=== PATIENT | male | born 2000 | race Caucasian/White ===

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

== ENCOUNTER 2019-03-19 16:37 | Inpatient (IN) ==
--- OUTSIDE RECORDS SUMMARY | 2019-03-19 16:40 | External Medical Summary | Continuity of Care Document ---
:2000 Author Name Clarence Melendez Address Unavailable Unavailable , Care Team Providers Name Role Phone Randi Ferraro M.D. Unavailable [email or web address] [email or web address], S Unavailable Unavailable Unavailable Unavailable Unavailable Assessments Assessed Problems:Pneumonia Problems Exercise counseling (V65.41) (Z71.82) Dietary counseling (V65.3) (Z71.3) Anxiety (300.00) (F41.9) Gastro-esophageal reflux (530.81) (K21.9) Pneumonia (486) (J18.9) Never used moist powdered tobacco (V49.89) (Z78.9) Never a smoker Allergies and Adverse Reactions No Known Drug Allergies (Allergy) Medications Azithromycin 250 MG Oral Tablet; TAKE DIRECTED PER PACKAGE INSTRUCTIONS. Nora Ferraro Start: 31-Aug-2017 Quantity: 1 6 Tablet Pack Refills: 0 Procedures Procedures not documented Immunizations IPV On: 1999 Hib (Haemophilus influenzae type b conjugate) and Hepa titis B vaccine On: 1999 DTaP On: 1999 IPV On: 1999 Hib (Haemophilus influenzae type b conjugate) and Hepa titis B vaccine On: 1999 DTaP On: 1999 DTaP On: 1999 IPV On: 01-Apr-2000 Hib (Haemophilus influenzae type b conjugate) and Hepa titis B vaccine On: 01-Apr-2000 Varicella On: 01-Apr-2000 MMR On: 01-Apr-2000 DTaP On: 06-Jul-2000 IPV On: 22-Apr-2001 DTaP On: 22-Apr-2004 MMR On: 20-May-2004 Varicella On: 23-Dec-2009 10:49 Lot #: [id number], [employer] Menactra Intramuscular Injectable On: 24-Apr-2011 12:27 Lot #: [id number], [employer] Tdap (Boostrix) On: 24-Apr-2011 12:27 Lot #: [id number], [employer] Menactra Intramuscular Injectable On: 14-Jun-2015 9:36 Lot #: [id number], [employer] Vaqta 25 UNIT/0.5ML Intramuscular Suspension On: 14-Jun-2015 9:37 Lot #: [id number], [employer] Vaqta 25 UNIT/0.5ML Intramuscular Suspension On: Apr-2017 Lot #: [id number], [employer] Family History Brother Family history of Asthma (V17.5) Status: Active Family history of Asthma (V17.5) Status: Active Sister Family history of Asthma (V17.5) Status: Active Family history of Portal vein thrombosis (452) (I81) Status: Active Father Family history of Ulcer (707.9) Status: Active Social History - Smoking Status Never smoker Interventions Medication ChangesAzithromycin 250 MG Oral Tablet - Start Plan of Treatment Planned Observations Planned Goals not documented Results No Known Results Results not documented Encounters Appointment; Javi Orta M.D. 04-May-2017 12:00 Encounter Diagnosis: Problem not documented Appointment; Ashley Ferraro M.D. 31-Aug-2017 10:15 Encounter Diagnosis: Problem not documented
[2019-03-19] MEDS ORDERED: ONDANSETRON INJ 2 MG/ML 2 ML VIAL IV STA ×2 (16:46→17:37)
[2019-03-19] MEDS ORDERED: KETOROLAC TROMETHAMINE 15 MG/ML VIAL IV ONE (16:48)
[2019-03-19] MEDS ORDERED: SODIUM CHLORIDE 0.9% 500 ML IV SCH (17:00)
[2019-03-19 17:07] LABS: Basophils # (auto) 0.01 K/uL (0-0.2); Basophils % (auto) 0.1 %; Eosinophils # (auto) 0.04 K/uL (0-0.5); Eosinophils % (auto) 0.2 %; Hematocrit (blood only) 47.1 % (42-52); Hemoglobin 16.8 g/dL (14.0-18.0); Immature Granulocytes # (auto) 0.03 K/uL (0.00-0.02); Immature Granulocytes % (auto) 0.2 %; Lymphocytes # (auto) 2.57 K/uL (1.2-3.4); Lymphocytes % (auto) 13.8 %; Mean Corpuscular Hgb Conc 35.7 g/dL (32-36); Monocytes # (auto) 1.12 K/uL (0.11-0.59); Neutrophils # (auto) 14.83 K/uL (1.4-6.5); Neutrophils % (auto) 79.7 %; Platelet Count 263 K/uL (130-400); RDW Coefficient of Variation 13.4 % (11.5-14.5); RDW Standard Deviation 41.4 fL (36.4-46.3); Red Blood Count 5.54 M/uL (4.7-6.1)
[2019-03-19] MEDS: HYDROmorphone INJ 0.5 MG/0.5 ML SYR IV PRN (17:12)
[2019-03-19 17:26] LABS: Albumin Level 4.3 gm/dl (3.4-5.0); BUN Creatinine Ratio 7.2 (10-20); Calcium 9.2 mg/dl (8.5-10.1); Creatinine Clr Calc Pharmacy 89.3 ml/min; Est GFR (African American) 100.3; Est GFR (Non-African American) 86.5; Potassium 4.2 mmol/L (3.5-5.1)
[2019-03-19 17:29] LABS: Albumin Globulin Ratio 1.1 (0.9-2); Bilirubin,Total 1.3 mg/dl (0.2-1); Total Protein 8.3 gm/dl (6.4-8.2)
[2019-03-19 19:14] LABS: Appearance Urine Clear (Clear); Bacteria Urine Automated Negative (Negative); Bilirubin Urine Negative (Negative); Cast Urine Automated 0 /lpf (0-5); Glucose Urine UA Negative (Negative); Ketones Urine Negative (Negative); Leukocyte Esterase Urine Negative (Negative); Nitrite Urine Negative (Negative); Specific Gravity Urine 1.019 (1.000-1.030); Urobilinogen Urine Negative (Negative); pH Urine 8.5 (4.5-7.5)
[2019-03-19] MEDS ORDERED: IOVERSOL 100ml IV PRN (19:17)
[2019-03-19 19:19] LABS: Color Urine Dark Yellow
[2019-03-19 19:21] LABS: Protein Urine Negative (Negative)
--- NOTE | 2019-03-19 19:31 | CT Scan Report ---
CT abd pelvis oral and IV con CT DOSE: 281.19 mGy.cm HISTORY: Pain. Nausea. lower abd pain TECHNIQUE: Multiaxial CT images of the abdomen and pelvis were performed following the use of intrave nous and oral contrast. A dose lowering technique was utilized adhering to the principles of ALARA. COMPARISON STUDY: None. FINDINGS: The lung bases are clear. Liver spleen and pancreas are unremarkable. The kidneys enhance u niformly. The upper abdominal bowel pattern is nonobstructive. Trace free fluid within the right paracolic gutter region. Tubular structure medial and inferior to t he cecum extending to the low soft tissue pelvic region. This appears to contain a combination of sev eral appendicoliths as well as fluid with a maximum diameter of 11 mm. This is suggestive of acute ap pendicitis. Trace amount of periappendiceal infiltrative change. No evidence for abscess or collectio n. Lower pelvic bowel pattern is considered nonobstructive. There may be a minimal reactive ileus as wel l as several small reactive mesenteric nodes. IMPRESSION: 1. Acute appendicitis. 2. The appendix is distended to a maximum diameter of 11 mm and contains a combination of fluid as we ll as appendicoliths. 3. Mild periappendiceal infiltrative change. 4. No evidence for abscess collection or obstruction. 5. Mild reactive lower pelvic small bowel ileus. 6. Trace free fluid within the right paracolic gutter. The above report was generated using voice recognition software. It may contain grammatical, syntax or spelling errors. Electronically signed by: Walker Connolly M.D. 03/19/2019 7:30 PM
[2019-03-19] MEDS ORDERED: cefOXitin 2,000 MG/60 ML BAG IV STA (19:35)
--- NOTE | 2019-03-19 20:16 | History & Physical Report ---
Date of Service March 19, 2019 Assessment & Plan (1) Appendicitis: lap appy possible open r and c explained to pt including bleeding on going infection injury tp other organs Present on Admission?: Yes History of Present Illness Chief Complaint: abd pain emesis since yesterday Primary Care Provider: NO PCP 24 hr plus history of belly pain that started around belly button then vomited x3 than pain moved to right lower belly and became worse today no temperature at home Allergies Allergy/AdvReac Type Severity Reaction Status Date / Time No Known Allergies Allergy Unverified 03/19/19 17:24 Home Medications Home Medications Medication Instructions Recorded Confirmed Type Amped Af 1 dose PO UD PRN 03/19/19 03/19/19 History Creatine Powder 1 dose PO UD 03/19/19 03/19/19 History [employer] Massacre 1 dose PO UD 03/19/19 03/19/19 History Past Med/Surg History Medical History Appendicitis (Acute) Social History Preferred Language: Nepali Feels Safe at Home: Yes Smoking Status: Former smoker Review of Systems Review of Systems: All systems reviewed & are unremarkable except as noted in HPI & below 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 disease Physical Exam Physical Exam: alert coherent looks sick Eyes: conjunctivae injected ENMT: external ear and nose normal, oropharynx normal Neck: trachea midline, no thyromegaly trachea midline Thyroid: normal thyroid Respiratory: normal respiratory effort, lungs clear to auscultation Cardiovascular: RRR, no murmur, no edema Rate/Rhythm: + tachycardic Gastrointestinal (Abdomen): thin muscular abdomen with rebound rlq and generalized guarding Musculoskeletal: no cyanosis or clubbing, extremities motor strength 5/5 Skin: no rashes, warm and dry normal turgor Results & Data Vital Signs (Past 12 Hours) Vital Signs Temp Pulse Pulse Resp BP BP Pulse Ox 03/19/19 19:52 38.0 C H 118 H 18 104/50 L 95 03/19/19 18:54 38.0 C H 130 H 18 115/57 L 97 03/19/19 17:41 98 03/19/19 17:18 102 H 20 136/72 100 03/19/19 17:10 102 H 20 118/75 100 03/19/19 16:41 38.1 C H 114 H 20 123/77 100 noted
[2019-03-19] MEDS ORDERED: LIDOCAINE/EPINEPHRINE 1% 20 ML VIAL ONE (20:20)
[2019-03-19] MEDS ORDERED: HYDROmorphone INJ 2 MG/ML SYR/VIAL IV PRN (20:39)
[2019-03-19] MEDS ORDERED: ONDANSETRON INJ 2 MG/ML 2 ML VIAL IV PRN ×2 (20:39→23:06)
[2019-03-19] MEDS ORDERED: ePHEDrine sulfate 50 MG/ML AMP IV PRN (20:39)
[2019-03-19] MEDS ORDERED: fentaNYL citrate 100 MCG/2 ML VIAL IV PRN (20:39)
[2019-03-19] MEDS ORDERED: PROMETHAZINE HCL 6.25 MG in SODIUM CHLORIDE 0.9% 50 ML IV PRN (20:39)
[2019-03-19] MEDS ORDERED: ATROPINE SULFATE 0.1 MG/ML 10ML SYR IV PRN (20:39)
--- NOTE | 2019-03-19 20:44 | Anesthesiology Consultation ---
Date of Service March 19, 2019 Assessment & Plan Chart Review Chart Review: Acceptable Risk for Surgery and Patient NOT seen in Pre Admission Testing Consults Requested none ASA [id number] Proposed Anesthesia Anesthesia Type: General Risk / Benefits Reviewed With: PT / POA / Parent / Guardian, Accepts Plan and Informed Consent Obtained History Surgery Operation Date: 03/19/19 20:10 Proposed Procedures p Laparoscopic Appendectomy - Cristiano Downs MD Height/Weight Height: 5 ft 8 in Weight: 64.3 kg Allergies Allergy/AdvReac Type Severity Reaction Status Date / Time No Known Allergies Allergy Unverified 03/19/19 17:24 Medications Home Medications Medication Instructions Recorded Confirmed Last Taken Amped Af 1 dose PO UD PRN 03/19/19 03/19/19 Unknown Creatine Powder 1 dose PO UD 03/19/19 03/19/19 Unknown [employer] Massacre 1 dose PO UD 03/19/19 03/19/19 Unknown Active Medications Generic Name Dose Route Start Last Admin Trade Name Freq PRN Reason Stop Dose Admin Hydromorphone HCl 0.5 mg 03/19/19 16:46 03/19/19 17:12 Dilaudid IV 04/02/19 16:45 0.5 mg Q15M PRN Administration Pain Ioversol 93 ml 03/19/19 19:17 03/19/19 19:17 Optiray 320 100ml IV 03/23/19 19:16 93 ml ONCE PRN Administration Interaction Checking NPO Date Last Intake of Fluids: 03/19/19 Time Last Intake of Fluids: 18:30 Last Intake of Fluids Comment: CT oral contrast Date Last Intake of Solids: 03/19/19 Time Last Intake of Solids: 15:00 Last Intake of Solids Comment: banana Past Medical History Medical History Appendicitis (Acute) Exercise / Class Metabolic Activity 1 > 8 Run/Swim/Ski/Tennis Past Anesthesia History No Hx of Anesthesia Complications and No Family Hx of Anesthesia Complications History of PONV No Hx of PONV and No Hx of Motion Sickness Social History Smoking Status: Former smoker Physical Exam Vital Signs Last Vital Signs Temp 38.0 C H 03/19/19 19:52 Pulse 118 H 03/19/19 19:52 Resp 18 03/19/19 19:52 BP 104/50 L 03/19/19 19:52 Pulse Ox 95 03/19/19 19:52 ENMT Mouth: no dentition abnormality Thyromental Distance: > or= 3.5 Finger Breadths Mallampati Class: II Neck normal visual inspection Respiratory normal respiratory effort Auscultation: lungs clear to auscultation bilaterally Cardiovascular Rate/Rhythm: regular rate and regular rhythm Psychiatric Orientation: alert Testing Laboratory Results 03/19/19 16:58 03/19/19 16:58 Urine Color Dark Yellow 03/19/19 18:56 Urine Appearance Clear (Clear) 03/19/19 18:56 Urine pH 8.5 (4.5-7.5) H 03/19/19 18:56 Ur Specific [place] 1.019 (1.000-1.030) 03/19/19 18:56 Urine Protein Negative (Negative) 03/19/19 18:56 Urine Glucose (UA) Negative (Negative) 03/19/19 18:56 Urine Ketones Negative (Negative) 03/19/19 18:56 Urine Nitrite Negative (Negative) 03/19/19 18:56 Ur Leukocyte Esterase Negative (Negative) 03/19/19 18:56 Urine WBC (Auto) 1-5 /hpf (0-5) 03/19/19 18:56 Urine RBC (Auto) 0-4 /hpf (0-4) 03/19/19 18:56 U Hyaline Cast (Auto) 0 /lpf (0-5) 03/19/19 18:56 U Epithel Cells (Auto) 5-10 /lpf (0-5) H 03/19/19 18:56 Urine Bacteria (Auto) Negative (Negative) 03/19/19 18:56
[2019-03-19] MEDS ORDERED: fentaNYL citrate 100 MCG/2 ML VIAL ONE (20:50)
--- NOTE | 2019-03-19 21:07 | Emergency Department Note ---
Entered by Vannessa Butts acting as a scribe for ED Provider Note CHIEF COMPLAINT: abdominal pain HISTORY OF PRESENT ILLNESS: The patient is a 19 year old male who presents to the Emergency Room with complaints of abdominal pain that started yesterday. The patient states that yesterday he had abdominal pain and vomiting. The patien t reports that today he has not been vomiting as frequently as prior, however the abdominal pain migrated lower down his abdomen. The patient states at this time he is only feeling nauseous has a pain severity of 6. The patient expresses that he feels better resting however he has an occasional "flare up" of pain. The patient has not taken any medication prior to arrival. The patient states that he had chicken noodle soup and a banana around 0300. The patient reports any significant medical history or surgery. The patient expresses that he has never felt this pain before. Pt denies LOC, headache, fevers, chills, diaphoresis, visual changes, neck pain, chest pain, breathing difficulties, back pain, melena, hematochezia, urinary symptoms, numbness, weakness, lymphadenopathy, rash, or other complaints. REVIEW OF SYSTEMS: See HPI for pertinent positives and negatives. A total of ten systems were reviewed and were otherwise negative. PMHx/PSHx: Right ankle pain SOCIAL HISTORY: Patient lives at home. PHYSICAL EXAM: GENERAL: Awake, alert, uncomfortable, in no distress HENT: Normocephalic, atraumatic. Oropharynx unremarkable. EYES: PERRL. Normal conjunctiva. Sclera non-icteric. NECK: Inspection normal. Non-tender. Supple. No nuchal rigidity. FROM. No masses. RESPIRATORY: Clear to auscultation. No wheezes. No rales. Normal respiratory effort. CARDIAC: Tachycardic rate. Normal rhythm. No murmurs. No rubs. Extremities warm and well perfused. Pulses equal. No JVD. GI: Soft, non-distended. Midline and right lower tenderness.Tenderness to palpation. Rebound or guarding. No masses. Positive Rovsing's sign. Positive hip shake. Positive obturator sign. RECTAL: Deferred. MUSCULOSKELETAL: Atraumatic. Chest examination reveals no tenderness. The back is symmetrical on inspection without obvious abnormality. There is no CVA tenderness to palpation. No joint edema. LOWER EXTREMITIES: Calves are equal size bilaterally and non-tender. No edema. No discoloration. NEURO: Normal sensorium. No sensory or motor deficits noted. SKIN: No rash or jaundice noted. EMERGENCY DEPARTMENT COURSE: 164: Past medical records reviewed. The patient was evaluated in room A12, and a complete history and physical examination were performed. 1742: I reassessed the patient who was having more nausea. I gave him additional Zofran. 185: I reassessed the patient who was feeling better and will go to CAT scan soon. 1937: I updated the patient on the findings from his CAT scan. I paged general surgery for a consultation 1945: I reviewed the patient's case with Dr. Downs - [facility]. He has agreed to admit the patient. MEDICAL DECISION MAKING: A12 Prior records/ancillary studies reviewed. Triage Nursing notes reviewed and agree them. Additional history obtained from family. The patient's history was concerning for abdominal pain. Differential diagnosis: Etiologies such as appendicitis, diverticulitis, PUD, biliary pathology, UTI, pancreatitis, obstruction, mesenteric ischemia, aortic pathology, infections, inflammatory bowel disease, renal colic, as well as others were entertained. Physical examination findings: As above. ER treatment provided: IV normal saline hydration with 2 L normal saline IV Zofran 4 mg x 2 IV Dilaudid 0.5 mg x 2 N.p.o. Monitoring revealed sinus tachycardia. On reassessment the patient felt better. IV Mefoxin. Diagnostics interpreted by me: The labs revealed a significant leukocytosis on CBC. Chemistry panel revealed mild dehydration. Imaging studies: CT scan of the under pelvis was reviewed and is consistent with acute appendi citis. Radiology agrees. No perforation. Patient has acute appendicitis. He was informed. He will need surgery. Consultation: A consultation was placed with the general surgeon on-call, Dr. Cristiano Downs. The case was discussed and diagnostics were reviewed. The patient was evaluated in the ER for further treatment. IMPRESSION: Appendicitis PLAN: Being Evaluated by Hospitalist The scribe's documentation has been prepared under my direction and personally reviewed by me in its entirety. I confirm that the note above accurately reflects all work, treatment, procedures, and medical decision making performed by me. Impression & Plan Appendicitis Past Med/Surg History Medical History Appendicitis (Acute) Social History Preferred Language: Malay Feels Safe at Home: Yes Smoking Status: Former smoker Results & Data Vital Signs Vital Signs - 24 hr 03/19/19 16:41 03/19/19 17:10 03/19/19 17:18 Temperature 38.1 C H Temperature Source Oral Sepsis Recent Fever Within 48 Hours Yes Sepsis New/Unexplained Change in Mental Status No Sepsis Action Taken by Nursing No Action Required Pulse Rate 114 H Pulse Rate [Right] 102 H 102 H Pulse Rhythm Regular Pulse Strength Normal Respiratory Rate 20 20 20 Respiratory Effort / Characteristics Non-Labored Spontaneous Non-Labored Non-Labored Respiratory Depth Normal Normal Normal Respiratory Pattern Regular Blood Pressure 123/77 Blood Pressure [Right Arm] 118/75 136/72 Blood Pressure Mean 92 Blood Pressure Mean [Right Arm] 89 93 Blood Pressure Position Sitting Pulse Oximetry 100 100 100 Oxygen Delivery Method Room Air Room Air Room Air 03/19/19 17:41 03/19/19 18:54 03/19/19 19:52 Temperature 38.0 C H 38.0 C H Temperature Source Oral Oral Sepsis Recent Fever Within 48 Hours Sepsis New/Unexplained Change in Mental Status Sepsis Action Taken by Nursing Pulse Rate Pulse Rate [Right] 130 H 118 H Pulse Rhythm Pulse Strength Respiratory Rate 18 18 Respiratory Effort / Characteristics Non-Labored Non-Labored Respiratory Depth Normal Normal Respiratory Pattern Blood Pressure Blood Pressure [Right Arm] 115/57 L 104/50 L Blood Pressure Mean Blood Pressure Mean [Right Arm] 76 68 Blood Pressure Position Pulse Oximetry 98 97 95 Oxygen Delivery Method Room Air Room Air Room Air Home Medications Current Medication List: was personally reviewed by me Laboratory Data Attestation: I reviewed the patient's lab results. Result diagrams: 03/19/19 16:58 03/19/19 16:58 Lab Results 03/19/19 03/19/19 03/19/19 Range/Units 16:58 16:58 18:56 WBC 18.60 H (4.8-10.8) K/uL RBC 5.54 (4.7-6.1) M/uL Hgb 16.8 (14.0-18.0) g/dL Hct 47.1 (42-52) % MCV 85.0 (80-100) fL MCH 30.3 (25-34) pg MCHC 35.7 (32-36) g/dL RDW Std Deviation 41.4 (36.4-46.3) fL RDW Coeff of Des 13.4 (11.5-14.5) % Plt Count 263 (130-400) K/uL MPV 9.0 (7.4-10.4) fL Immature Gran % (Auto) 0.2 % Neut % (Auto) 79.7 % Lymph % (Auto) 13.8 % Alfalfa % (Auto) 6.0 % Eos % (Auto) 0.2 % Baso % (Auto) 0.1 % Immature Gran # (Auto) 0.03 H (0.00-0.02) K/uL Neut # (Auto) 14.83 H (1.4-6.5) K/uL Lymph # (Auto) 2.57 (1.2-3.4) K/uL Alfalfa # (Auto) 1.12 H (0.11-0.59) K/uL Eos # (Auto) 0.04 (0-0.5) K/uL Baso # (Auto) 0.01 (0-0.2) K/uL Sodium 135 L (136-145) mmol/L Potassium 4.2 (3.5-5.1) mmol/L Chloride 101 (98-107) mmol/L Carbon Dioxide 28 (21-32) mmol/L Anion Gap 6.0 (3-11) BUN 9 (7-18) mg/dl Creatinine 1.20 (0.6-1.4) mg/dl Est Cr Clr Drug Dosing 89.3 ml/min Est GFR ( Amer) 100.3 Est GFR (Non-Af Amer) 86.5 BUN/Creatinine Ratio 7.2 L (10-20) Glucose 128 H (70-99) mg/dl Calcium 9.2 (8.5-10.1) mg/dl Total Bilirubin 1.3 H (0.2-1) mg/dl AST 16 (15-37) U/L ALT 44 (12-78) U/L Alkaline Phosphatase 104 (45-117) U/L Total Protein 8.3 H (6.4-8.2) gm/dl Albumin 4.3 (3.4-5.0) gm/dl Globulin 4.0 (2.5-4.0) gm/dl Albumin/Globulin Ratio 1.1 (0.9-2) Lipase 111 (73-393) U/L Urine Color Dark Yellow Urine Appearance Clear (Clear) Urine pH 8.5 H (4.5-7.5) Ur Specific [place] 1.019 (1.000-1.030) Urine Protein Negative (Negative) Urine Glucose (UA) Negative (Negative) Urine Ketones Negative (Negative) Urine Blood Negative (Negative) Urine Nitrite Negative (Negative) Urine Bilirubin Negative (Negative) Urine Urobilinogen Negative (Negative) Ur Leukocyte Esterase Negative (Negative) Urine WBC (Auto) 1-5 (0-5) /hpf Urine RBC (Auto) 0-4 (0-4) /hpf U Hyaline Cast (Auto) 0 (0-5) /lpf U Epithel Cells (Auto) 5-10 H (0-5) /lpf Urine Bacteria (Auto) Negative (Negative) Administered Medications Hydromorphone HCl (Dilaudid) 0.5 mg IV Q15M PRN PRN Reason: Pain Stop: 04/02/19 16:45 Last Admin: 03/19/19 17:12 Dose: 0.5 mg Documented by: [id number] Ioversol (Optiray 320 100ml) 93 ml IV ONCE PRN PRN Reason: Interaction Checking Stop: 03/23/19 19:16 Last Admin: 03/19/19 19:17 Dose: 93 ml Documented by: [id number] Discontinued Medications Sodium Chloride (Nss) 500 mls @ 999 mls/hr IV .Q31M CHAPARRITA Stop: 03/19/19 17:30 Last Infusion: 03/19/19 17:44 Dose: 0 mls/hr Documented by: [id number] Admin: 03/19/19 17:12 Dose: 999 mls/hr Documented by: [id number] Cefoxitin Sodium (Mefoxin) 2,000 mg in 60 mls @ 100 mls/hr IV NOW STA Stop: 03/19/19 20:10 Last Admin: 03/19/19 20:00 Dose: 100 mls/hr Documented by: [id number] Ketorolac Tromethamine (Toradol) 10 mg IV NOW ONE Stop: 03/19/19 16:49 Last Admin: 03/19/19 17:12 Dose: 10 mg Documented by: [id number] Ondansetron HCl (Zofran) 4 mg IV NOW STA Stop: 03/19/19 16:47 Last Admin: 03/19/19 17:12 Dose: 4 mg Documented by: [id number] Ondansetron HCl (Zofran) 4 mg IV NOW STA Stop: 03/19/19 17:38 Last Admin: 03/19/19 17:40 Dose: 4 mg Documented by: [id number] Imaging Data Radiologist's Impression: Radiology results as stated below per my review and the radiologist's interpretation: CT abd pelvis oral and IV con CT DOSE: 281.19 mGy.cm HISTORY: Pain. Nausea. lower abd pain TECHNIQUE: Multiaxial CT images of the abdomen and pelvis were performed following the use of intravenous and oral contrast. A dose lowering technique was utilized adhering to the principles of ALARA. COMPARISON STUDY: None. FINDINGS: The lung bases are clear. Liver spleen and pancreas are unremarkable. The kidneys enhance uniformly. The upper abdominal bowel pattern is nonobstructive. Trace free fluid within the right paracolic gutter region. Tubular structure medial and inferior to the cecum extending to the low soft tissue pelvic region. This appears to contain a combination of several appendicoliths as well as fluid with a maximum diameter of 11 mm. This is suggestive of acute appendicitis. Trace amount of periappendiceal infiltrative change. No evidence for abscess or collection. Lower pelvic bowel pattern is considered nonobstructive. There may be a minimal reactive ileus as well as several small reactive mesenteric nodes. IMPRESSION: 1. Acute appendicitis. 2. The appendix is distended to a maximum diameter of 11 mm and contains a combination of fluid as well as appendicoliths. 3. Mild periappendiceal infiltrative change. 4. No evidence for abscess collection or obstruction. 5. Mild reactive lower pelvic small bowel ileus. 6. Trace free fluid within the right paracolic gutter. The above report was generated using voice recognition software. It may contain grammatical, syntax or spelling errors. Electronically signed by: Walker Connolly M.D. 03/19/2019 7:30 PM Discharge Plan Visit Data Chief Complaint: Abdominal Pain Stated Complaint: ABDOMINAL PAIN, VOMITING ED Provider: Bry Fleming Discharge Problem: Appendicitis Patient Disposition: Being Evaluated by Surgeon Discharge Instructions Interventions: ED Discharge Assessment Last Done: 03/19/19 20:18 Discharge Problem: Appendicitis Qualifiers: Appendicitis type: acute appendicitis Acute appendicitis type: with localized peritonitis Appendicitis gangrene presence: without gangrene Appendicitis perforation presence: without perforation Appendicitis abscess presence: unspecified whether abscess present Qualified Code(s): K35.30 - Acute appendicitis with localized peritonitis, without perforation or gangrene The scribe's documentation has been prepared under my direction and personally reviewed by me in its entirety. I confirm that the note above accurately reflects all work, treatment, procedures, and medical decision making performed by me.
[2019-03-19] MEDS ORDERED: LIDOCAINE HCL 2% 2 ML VIAL/AMP(20MG/ML) INFIL ONE (21:15)
[2019-03-19] MEDS ORDERED: PROPOFOL IV EMULSION 10 MG/ML 20 ML VIAL IV ONE (21:15)
[2019-03-19] MEDS ORDERED: DEXAMETHASONE SOD INJ 4 MG/ML VIAL ONE (21:15)
[2019-03-19] MEDS ORDERED: CISATRACURIUM BESYLATE IV SOLN 2 MG/ML 10 ML VIAL IV ONE (21:15)
[2019-03-19] MEDS ORDERED: SUCCINYLCHOLINE CHLORIDE 20 MG/ML 10 ML VIAL ONE (21:15)
[2019-03-19] MEDS ORDERED: NEOSTIGMINE METHYLSULFATE 5 MG/5 ML SYR ONE (21:15)
[2019-03-19] MEDS ORDERED: KETOROLAC 30 MG/ML VIAL ONE (21:15)
[2019-03-19] MEDS ORDERED: ONDANSETRON INJ 2 MG/ML 2 ML VIAL ONE (21:15)
[2019-03-19] MEDS ORDERED: GLYCOPYRROLATE 0.2 MG/ML VIAL ONE (21:15)
[2019-03-19] MEDS ORDERED: MoRPHine SULFATE 2 MG/ML CARP ONE (21:40)
--- NOTE | 2019-03-19 21:49 | Post Operative Brief Note ---
Immediate Post Op Note v1 Date of Surgery March 19, 2019 Pre & Post Diagnosis Operation Date: 03/19/19 20:10 Pre-Op Diagnosis: Appendicitis Post-Op Diagnosis: Gangrenous Appendicitis Procedure Operation Date: 03/19/19 20:10 Actual Procedures p Laparoscopic Appendectomy(Not Applicable) - Cristiano Downs MD Surgeon Cristiano Downs MD Chief Drafter 0 Estimated Blood Loss 5 Findings Consistent with Post-Op Diagnosis Drains Justin Drain (19 Fr)
[2019-03-19] MEDS ORDERED: PIPERACILL/TAZOBAC CONSULT ACTIVE PRN (22:02)
[2019-03-19] MEDS ORDERED: HYDROmorphone INJ 1 MG/ML SYRINGE IV PRN (22:02)
--- NOTE | 2019-03-19 22:16 | Anesthesiology Progress Note ---
Date of Service March 19, 2019 Anesthesia Post Procedure Vital Signs Vital Signs: Temp Pulse Pulse Resp BP BP Pulse Ox 03/19/19 19:52 38.0 C H 118 H 18 104/50 L 95 03/19/19 18:54 38.0 C H 130 H 18 115/57 L 97 03/19/19 17:41 98 03/19/19 17:18 102 H 20 136/72 100 03/19/19 17:10 102 H 20 118/75 100 03/19/19 16:41 38.1 C H 114 H 20 123/77 100 Pain Intensity Other: Pain Intensity: 4 Transfer of Care Handoff Completed per policy Notes Mental Status: alert / awake / arousable Patient Amnestic to Procedure: Yes Nausea / Vomiting: adequately controlled Pain: adequately controlled Airway Patency, RR, SpO2: stable & adequate BP & HR: stable & adequate Hydration State: stable & adequate Anesthetic Complications: no major complications apparent
--- NOTE | 2019-03-19 22:23 | Operative Report ---
Post Operative Report Pre & Post Diagnosis Operation Date: 03/19/19 20:10 Pre-Op Diagnosis: Appendicitis Post-Op Diagnosis: Gangrenous Appendicitis Procedure Operation Date: 03/19/19 20:10 Actual Procedures p Laparoscopic Appendectomy(Not Applicable) - Cristiano Downs MD The patient was brought into the operating theater supine position general endotracheal anesthesia abdomen was prepped Betadine solution properly draped systemic antibiotics on board timeout was had patient identified small incision was made supraumbilically sufficient for a Veress needle followed by CO2 followed by 5 mm trocar we were using the 30 degree scope which was poor quality therefore we changed with 0 degree point of entry inspected no injury identified patient is best as we could tell with the video of the small bowel appeared to be hyperemic the cecum was identified at the base of the appendix could be seen going down towards the pelvis under direct visualization I placed a 5 mm right upper quadrant port preemptive analgesic at this point we then could see by moving the terminal ileum that down towards the pelvic area there is cloudy feculent appearing fluid we put a trap and aspirated this for culture irrigated that area copiously patient in reverse Trendelenburg. At this point once this was accomplished we ~~patient to the left after we had placed and converted the 5 mm umbilical port to a 11 mm placed a 5 mm left lower quadrant with a camera could identify the base of the appendix markedly fibrinous this as we can see the tip was down to towards the pelvic brim creating a window between the mesoappendix and the cecum and then were able to place one firing of the blue load JOSEPH elevating the appendix at this point we then mobilized the terminal ileum more I could see that the tip of the appendix was gangrenous the mesentery was quite inflamed. I elected then to just use clips as we went along the mesentery down to the tip of the appendix. There is no gross obviously perforation but I suspect it was microperforation given the fluid that we had in the belly. The appendix was then placed in an Endopouch and taken out through the epigastric port through the umbilical port. Irrigation was used to serially significantly irrigate the abdomen and patient in reverse Trendelenburg I elected to drain the pelvic area with a Justin drain the prior to doing that reinspected the area of the staple on the cecum which was hemostatic as was the individual clips that I placed in the nasal index terminal ileum was free from any injury. Justin drain was brought in through the left lower quadrant port and taken out the right upper quadrant port and positioned in the right gutter and on the pelvis attached to skin edge with 2-0 silk individual trochars were then removed fascial stitch of [id number] 0 Vicryl x2 for the umbilical fascia Monocryl subcu Steri-Strips applied procedure was tolerated well by the patient estimated blood loss approximately 5 cc thank you Surgeon Cristiano Downs MD Developer Prover Upholstering 0 Estimated Blood Loss 5 Findings Consistent with Post-Op Diagnosis Specimens appendix peritoneal fluid Description of Procedure merda I attest to the content of the Intraoperative Record and any orders documented therein. Any exceptions are noted below.
[2019-03-19] MEDS ORDERED: ACETAMINOPHEN 325 MG TAB PO PRN (23:06)
[2019-03-20] MEDS: PIPERACILLIN/TAZOBACTAM 3.375 GM in DEXTROSE 5% 100 ML IV SCH ×3 (00:30→15:56)
[2019-03-20] MEDS: LACTATED RINGER'S 1,000 ML IV SCH ×3 (02:49→18:19)
[2019-03-20] MEDS: HYDROmorphone INJ 0.5 MG/0.5 ML SYR IV PRN ×3 (06:42→15:56)
--- NOTE | 2019-03-20 10:56 | Anesthesiology Progress Note ---
Date of Service March 20, 2019 Anesthesia Post Procedure Vital Signs Vital Signs: Temp Pulse Pulse Pulse Pulse Resp BP 03/20/19 07:45 37.1 C 66 16 03/20/19 06:50 36.6 C 54 L 18 03/20/19 02:50 36.8 C 61 18 03/20/19 01:33 37.1 C 70 16 03/19/19 23:50 37.5 C 86 19 03/19/19 23:20 37.3 C 87 18 03/19/19 23:12 37.2 C 71 14 03/19/19 22:40 37.0 C 90 20 99/49 L 03/19/19 22:36 92 H 16 03/19/19 22:35 91 H 18 96/51 L 03/19/19 22:31 90 15 03/19/19 22:30 90 13 88/41 L 03/19/19 22:26 97 H 15 03/19/19 22:25 90 15 97/43 L 03/19/19 22:21 97 H 20 03/19/19 22:20 100 H 19 89/51 L 03/19/19 22:16 99 H 20 03/19/19 22:15 101 H 19 98/48 L 03/19/19 22:11 99 H 17 03/19/19 22:10 99 H 22 99/51 L 03/19/19 22:05 101 H 21 93/47 L 03/19/19 22:02 102 H 19 93/42 L 03/19/19 22:00 37.1 C 115 H 102 H 19 03/19/19 19:52 38.0 C H 118 H 18 03/19/19 18:54 38.0 C H 130 H 18 03/19/19 17:41 03/19/19 17:18 102 H 20 03/19/19 17:10 102 H 20 03/19/19 16:41 38.1 C H 114 H 20 123/77 BP BP Pulse Ox 03/20/19 07:45 96/60 L 98 03/20/19 06:50 102/61 98 03/20/19 02:50 99/62 L 97 03/20/19 01:33 95/59 L 97 03/19/19 23:50 97/59 L 97 03/19/19 23:20 107/51 L 98 03/19/19 23:12 93/55 L 98 03/19/19 22:40 97 03/19/19 22:36 95 03/19/19 22:35 95 03/19/19 22:31 91 03/19/19 22:30 91 03/19/19 22:26 93 03/19/19 22:25 92 03/19/19 22:21 92 03/19/19 22:20 93 03/19/19 22:16 93 03/19/19 22:15 92 03/19/19 22:11 94 03/19/19 22:10 95 03/19/19 22:05 92 03/19/19 22:02 92 03/19/19 22:00 103/42 L 94 03/19/19 19:52 104/50 L 95 03/19/19 18:54 115/57 L 97 03/19/19 17:41 98 03/19/19 17:18 136/72 100 03/19/19 17:10 118/75 100 03/19/19 16:41 100 Pain Intensity Other: Pain Intensity: 4 Abdomen: Pain Intensity: 3 Notes Mental Status: alert / awake / arousable Patient Amnestic to Procedure: Yes Nausea / Vomiting: adequately controlled Pain: improving with treatment Airway Patency, RR, SpO2: stable & adequate BP & HR: stable & adequate Hydration State: stable & adequate Anesthetic Complications: no major complications apparent
[2019-03-20] MEDS: OXYCODONE/ACETAMINOPHEN 5mg/325mg TAB PO PRN ×2 (12:06→18:19)
[2019-03-20] MEDS ORDERED: Nursing to Pharmacy Communication ONE (14:31)
[2019-03-21] MEDS: PIPERACILLIN/TAZOBACTAM 3.375 GM in DEXTROSE 5% 100 ML IV SCH ×3 (00:10→16:16)
[2019-03-21] MEDS: OXYCODONE/ACETAMINOPHEN 5mg/325mg TAB PO PRN ×5 (00:27→19:46)
[2019-03-21] MEDS: LACTATED RINGER'S 1,000 ML IV SCH ×2 (02:05→10:00)
--- NOTE | 2019-03-21 06:37 | Surgery Progress Note ---
Date of Service March 21, 2019 Assessment & Plan (1) Appendicitis: 03/21/19 POD#1 slow with diet increase activity chnage to oral analgesics lap appy possible open r and c explained to pt including bleeding on going infection injury tp other organs Subjective feels better no nausea Physical Exam Physical Exam: alert coherent with minimal discomfort ENMT: external ear and nose normal, oropharynx normal Neck: trachea midline, no thyromegaly trachea midline Thyroid: normal thyroid Respiratory: normal respiratory effort, lungs clear to auscultation Cardiovascular: RRR, no murmur, no edema Rate/Rhythm: + tachycardic Musculoskeletal: no cyanosis or clubbing, extremities motor strength 5/5 Skin: no rashes, warm and dry normal turgor Results & Data Vital Signs (Past 12 Hours) Vital Signs Temp Pulse Resp BP Pulse Ox 03/20/19 23:37 36.8 C 56 L 16 93/52 L 96 (1) Appendicitis Acute appendicitis type: with localized peritonitis Appendicitis abscess presence: unspecified whether abscess present Appendicitis gangrene presence: without gangrene Appendicitis perforation presence: without perforation Appendicitis type: acute appendicitis Qualified Code(s): K35.30 - Acute appendicitis with localized peritonitis, without perforation or gangrene
[2019-03-21 07:16] LABS: Basophils # (auto) 0.02 K/uL (0-0.2); Basophils % (auto) 0.2 %; Eosinophils # (auto) 0.11 K/uL (0-0.5); Eosinophils % (auto) 1.3 %; Hematocrit (blood only) 39.3 % (42-52); Hemoglobin 12.8 g/dL (14.0-18.0); Immature Granulocytes # (auto) 0.02 K/uL (0.00-0.02); Immature Granulocytes % (auto) 0.2 %; Lymphocytes # (auto) 1.78 K/uL (1.2-3.4); Lymphocytes % (auto) 21.7 %; Mean Corpuscular Hgb Conc 32.6 g/dL (32-36); Mean Corpuscular Volume 88.9 fL (80-100); Mean Platelet Volume 9.6 fL (7.4-10.4); Monocytes # (auto) 0.82 K/uL (0.11-0.59); Neutrophils # (auto) 5.47 K/uL (1.4-6.5); Neutrophils % (auto) 66.6 %; Platelet Count 177 K/uL (130-400); RDW Coefficient of Variation 13.8 % (11.5-14.5); RDW Standard Deviation 45.3 fL (36.4-46.3); Red Blood Count 4.42 M/uL (4.7-6.1); White Blood Count 8.22 K/uL (4.8-10.8)
[2019-03-21 07:29] LABS: BUN Creatinine Ratio 10.5 (10-20); Calcium 8.3 mg/dl (8.5-10.1); Creatinine Clr Calc Pharmacy 99.2 ml/min; Est GFR (African American) 113.9; Est GFR (Non-African American) 98.3; Potassium 4.1 mmol/L (3.5-5.1)
[2019-03-21] MEDS ORDERED: OXYCODONE/ACETAMINOPHEN 5mg/325mg TAB PO PRN (09:41)
[2019-03-22] MEDS: PIPERACILLIN/TAZOBACTAM 3.375 GM in DEXTROSE 5% 100 ML IV SCH ×2 (00:07→07:42)
--- NOTE | 2019-03-22 07:50 | Surgery Progress Note ---
Date of Service March 22, 2019 Assessment & Plan (1) Appendicitis: 03/22/19 POD#2 will d/c iv fluid increase diet check later today for d/C keep drain in and remove in office on wednesday keep on augmentin for another 5 days 03/21/19 POD#1 slow with diet increase activity change to oral analgesics lap appy possible open r and c explained to pt including bleeding on going infection injury tp other organs Subjective feels ok pain controlled with oral meds no nausea pos flatus Physical Exam Physical Exam: alert coherent in no distress SO sleeping in chair next to him abd soft betty drainage serous Results & Data Vital Signs (Past 12 Hours) Vital Signs Temp Pulse Resp BP Pulse Ox 03/21/19 23:05 37.1 C 94 H 16 101/61 97 (1) Appendicitis Acute appendicitis type: with localized peritonitis Appendicitis abscess presence: unspecified whether abscess present Appendicitis gangrene presence: without gangrene Appendicitis perforation presence: without perforation Appendicitis type: acute appendicitis Qualified Code(s): K35.30 - Acute appendicitis with localized peritonitis, without perforation or gangrene
--- NOTE | 2019-03-27 08:15 | Discharge Summary ---
Date of Service March 27, 2019 Admission HPI Per Admitting Provider 24 hr plus history of belly pain that started around belly button then vomited x3 than pain moved to right lower belly and became worse today no temperature at home Principal Diagnosis Gangrenous appendicitis Discharge Exam Gastrointestinal (Abdomen) Inspection/Auscultation: + abdominal surgical incision (clean, dry) and + abdominal surgical drain present (70 cc overnight); abdomen not distended Percussion/Palpation: abdomen soft Discharge Data Allergies Allergy/AdvReac Type Severity Reaction Status Date / Time No Known Allergies Allergy Unverified 03/19/19 17:24 Consultations 03/19/19 19:49 ED Decision to Admit Stat Procedures Performed Operation Date: 03/19/19 20:10 Actual Procedures p Laparoscopic Appendectomy(Not Applicable) - Cristiano Downs MD Ordered Studies 03/19/19 16:46 CT abd pelvis oral and IV con Stat Hospital Course (1) Appendicitis: 19 y/o male presented to ED with 1 day history of abdominal pain. White count was 18,000, CT showed appendicitis. He was taken to the OR overnight for laparoscopic appendectomy. A betty drain was left as the appendix was gangrenous. IV antibiotics were continued for 48 hours. His white count normalized by day two, he was stable for discharge home at that time with the drain and on oral antibiotics. Total Time Total Time Spent Total Time Spent (In Minutes): 15 Discharge Plan Discharge Items Patient Disposition: Home - Self-Care Discharge Diagnosis: appendicitis Discharge Goals: Decrease discomfort Activity: Per 'Additional Instructions' section Lifting: No more than 10 pounds Bathing Comment: ok to shower, keep drain dry if possible Driving/Machine Use: Resume 3 days after discharge Non-emergency contact: Surgeon Call non-emergency contact if: you have any medication questions, your pain is not controlled, you have a fever, your temperature is above 101.5 and your wound has increased redness Diet: Regular Prescriptions: New oxycodone-acetaminophen [Percocet] 5-325 mg tablet 1 - 2 tab PO Q4H PRN (Reason: pain) Qty: 15 RF: 0 ciprofloxacin HCl [Cipro] 500 mg tablet 500 mg PO BID Qty: 14 RF: 0 Continued Amped Af 1 dose PO UD PRN (Reason: with workouts) RF: 0 Creatine Powder 1 dose PO UD RF: 0 [employer] [place] 1 dose PO UD RF: 0 Discharge Orders: Discharge Order (Routine); Ordered 03/22/19 Ordered By: Kevin Landry Jr Admission Data Admit Date/Time: 03/19/19 22:14 Attending Provider: Cristiano Downs Admit Provider: Cristiano Downs Primary Care Provider: PCP,NO Other Providers: Cristiano Downs Service: Surgical Services Other DC Date/Time DO NOT enter until pt leaves facility: 03/22/19 15:15
== END 2019-03-22 15:15 | disposition home or self-care (01) | DRG 343 ==
LOC: ED 16:37 → OR 20:30 → 3N 20:30
DX: K37 Unspecified appendicitis